=== PATIENT | male | born 1960 | race Caucasian/White ===

== ENCOUNTER → 2020-02-09 | Outpatient (CLI) | payer BC | LOC: LAB 07:25 | PROVIDERS: ATTEND Family Medicine | DX: Z20.828 Contact with and (suspected) exposure to other viral communicable diseases (principal) ==

== ENCOUNTER 2020-04-25 09:11 | Inpatient (IN) | payer BC ==
[~2020-04-25] VITALS: Ht 177.8 cm; Wt 78.9 kg
[2020-04-25 09:22] VITALS: BP 104/62
[2020-04-25] MEDS ORDERED: NAPROXEN SODIU220 M2 PO (10:19)
[2020-04-25 10:28] LABS: HEMOGLOBIN 9.3 gm/dL (14.0-18.0); MCH 24.9 pg (26.0-34.0); PLATELET COUNT 706 thou/uL (150-400); RBC 3.73 mil/uL (4.50-6.00); RDW 17.4 % (10.5-14.5); WBC 39.4 thou/uL (4.0-11.0)
[2020-04-25 10:49] LABS: ANION GAP 29 mmol/L (7-16); BUN 85 mg/dL (7-18); CALCIUM 9.5 mg/dL (8.5-10.1); CHLORIDE 99 mmol/L (98-107); CREATININE 4.9 mg/dL (0.7-1.3); GLUCOSE 117 mg/dL (74-106); LIPASE 62 U/L (73-393); POTASSIUM 3.9 mmol/L (3.5-5.1); SGOT 67 U/L (15-37); SGPT 38 U/L (30-65); SODIUM 139 mmol/L (136-145); TOTAL BILIRUBIN 3.2 mg/dL (0.2-1.0); TROPONIN-I <0.06 ng/mL (<0.06)
[2020-04-25 11:00] LABS: CO2 11 mmol/L (21-32)
--- NOTE | 2020-04-25 11:26 | EKG ---
[address] [address] ELECTROCARDIOGRAM REPORT Name: BETINA TORRES [id number] Admission: 04/25/20 Attend Phys: Discharge: Date of : 56 Report #: [id number] [facility] ED Test Date: 2020-04-25 Test Time: 10:01:25 Pat Name: BETINA TORRES Department: Room: Gender: M Jig Fitter: taniya : 1960 Requested By: Ludwig Dykes Order Number: [id number] MD: Torey Everett Measurements Intervals [place] Rate: 98 P: 53 CA: 197 QRS: 7 QRSD: 116 T: 36 QT: 395 QTc: 505 Interpretive Statements Sinus tachycardia Atrial premature complexes Nonspecific intraventricular conduction delay No previous ECG available for comparison Electronically Signed On 04-25-2020 11:26:06 SUPERSONIC ENGINEER by Torey Everett [email or web address] <ELECTRONICALLY SIGNED> By: Torey Everett MD, [facility] 04/25/20 1126 1001 1001 Torey Everett MD, FACC /EPI
[2020-04-25 12:29] LABS: CHOLESTEROL 137 mg/dL (<200); HDL CHOLESTEROL 7 mg/dL (>40); LDL CHOLESTEROL 88 mg/dL (<100); TC:HDL 19.6 Ratio (Not establshd); TRIGLYCERIDE 211 mg/dL (<150); VLDL 42 mg/dL (<40)
[2020-04-25 12:36] LABS: ABSOLUTE NEUTROPHILS 38.2 thou/uL (1.4-8.2); ANISOCYTOSIS 1+; METAMYELOCYTES 1 %; POIKILOCYTOSIS SLIGHT; TARGET CELLS OCCASIONAL; TOXIC GRANULATION SLIGHT
[2020-04-25 12:37] LABS: PLATELET ESTIMATE INCREASED
[2020-04-25 12:46] VITALS: BP 118/67
[2020-04-25 13:48] VITALS: BP 91/70
[2020-04-25 14:02] VITALS: BP 98/65
--- NOTE | 2020-04-25 15:42 | NUR ---
59-year-old male who presents for evaluation of both shortness of breath and generalized abdominal pain. He states that he has a history of lupus but denies any other significant medical problems. He reports that he has been having shortness of breath on and off for the last few months but that it became worse. Patient being admitted by hospitalist Dr. Reeves for Severe Dehydration, colonic mass/liver mets (?), type 2 2 lactic acidosis, GILBERT, and a history of lupus. Patient has a negative COVID Antigen test and PCR is pending. Patients spouse is listed as next of kin and person to notify, Funmilayo Lo with phone number [phone] as well as documented as the patient being A&O x4. As plan of care is determined, CM will follow for discharge needs.
[2020-04-25 15:46] VITALS: BP 100/70
[2020-04-25 17:25] LABS: URINE BILIRUBIN 1+ (Negative); URINE BLOOD 1+ (Negative); URINE CLARITY SL CLOUDY; URINE COLOR YELLOW; URINE GLUCOSE-RANDOM* TRACE (Negative); URINE KETONES NEGATIVE (Negative); URINE LEUKOCYTES 1+ (Negative); URINE NITRITE NEGATIVE (Negative); URINE PROTEIN (DIPSTICK) 2+ (Negative); URINE SPECIFIC GRAVITY 1.025 (1.005-1.035)
[2020-04-25 17:31] LABS: ICTOTEST (BILI CONFIRMATORY) Negative (Negative)
[2020-04-25 17:35] LABS: BACTERIA 1-9 Few /HPF (None Seen); CASTS None Seen /LPF (None Seen); CRYSTALS None Seen /LPF (None Seen); PROT/CREAT RATIO 1.6; SQUAMOUS 0-3 Few /LPF (0-3); URINE CREATININE-RANDOM* 152.2 mg/dL; URINE PROTEIN-RANDOM* 236.6 mg/dL (<11.9); URINE RBC 0-2 Rare /HPF (0-2); URINE WBC 6-15 Few /HPF (0-5)
--- NOTE | 2020-04-25 17:41 | NUR ---
PATIENT ADMIT TO UNIT FROM ER AT 1430. A/O X4. GENERLIAZED WEAKNESS. ON RA, AFEBRILE. VSS. 2/10 LOWER BACK PAIN. NO N/V. STAND BY AMBULATED TO BATHROOM. WILL KEEP MONITOR.
[2020-04-25 22:33] VITALS: BP 111/69
[2020-04-25 23:07] LABS: COMPLEMENT-C3 161 mg/dL (82-167); COMPLEMENT-C4 13 mg/dL (12-38)
--- NOTE | 2020-04-26 04:45 | NUR ---
blood cultures came back tonight gram negative cocci. recieved order to start antibiotics tonight. started vanco and piperacillin tonight. pt prefers to ambulate with assist to br for urine output. covid positve results reported from lab this shift from the 04/25/20 sample.
[2020-04-26 05:27] VITALS: BP 109/62
[2020-04-26 05:58] LABS: HEMATOCRIT 25.5 % (42.0-52.0); HEMOGLOBIN 8.2 gm/dL (14.0-18.0)
[2020-04-26 06:00] LABS: MCH 25.8 pg (26.0-34.0); MCHC 32.3 g/dL (28.0-37.0); MCV 79.9 fL (80.0-100.0); RBC 3.19 mil/uL (4.50-6.00)
[2020-04-26 06:02] LABS: PLATELET COUNT 483 thou/uL (150-400); WBC 9.7 thou/uL (4.0-11.0)
[2020-04-26 06:12] LABS: ALBUMIN 1.6 g/dL (3.4-5.0); CALCIUM 8.1 mg/dL (8.5-10.1); CREATININE 4.1 mg/dL (0.7-1.3); PHOSPHORUS 6.3 mg/dL (2.6-4.7); POTASSIUM 4.4 mmol/L (3.5-5.1)
--- NOTE | 2020-04-26 07:24 | NUR ---
ambika tyler this am 04/26/20 approx 0715. notified that the patients procalcitonin is greater than 200
[2020-04-26 07:42] VITALS: BP 114/92
[2020-04-26 11:21] VITALS: BP 88/59
[2020-04-26 12:48] LABS: ABSOLUTE NEUTROPHILS 8.7 thou/uL (1.4-8.2); ANISOCYTOSIS 1+; NUCLEATED RBCS 1 /100WBC
[2020-04-26 15:31] VITALS: BP 107/72
--- NOTE | 2020-04-26 16:01 | NUR ---
INITIAL ASSESSMENT: SW reviewed chart and spoke with nursing and attending physician. Pt was admitted from home due to dehydration. Pt placed in Enhanced Isolation due to COVID-19. Pt is afebrile and not requiring O2. Pt is on IV abx and IV steroids. IR consulted for liver biopsy. Pt with colon masses with possible liver mets. SW placed call to pt's room. No answer. Per chart, pt is alert/orientated. Pt lives at home with his . SW will follow up with pt at a later time and assist as needed with discharge planning.
--- NOTE | 2020-04-26 19:13 | NUR ---
PATIENT ADMIT TO UNIT AT 1745. A/0 X2. ON 2L/NC. NOTED BLOOD TINGED LIQID STOOL FROM RIGHT OSTOMY. IN TEAM PUT RIGHT IJ. WILL KEEP MONITOR.
[2020-04-26 20:13] VITALS: BP 118/71
--- NOTE | 2020-04-26 23:49 | NUR ---
PT RESTING IN ROOM WATCHING TV. IVF INTACT. PT STEADY GAIT WHEN AMBULATING TO RESTROOM. PT REPORTING LOOSE STOOLS. LUNGS DIMINISHED, HR DISTANT, BS DECREASED. ABD DISTENDED. DUSKY SKIN TONE. ID DR SEWELL.
[2020-04-27] VITALS (9 sets, daily range): BP systolic 102–130; BP diastolic 62–82
[2020-04-27 05:32] LABS: HEMATOCRIT 21.4 % (42.0-52.0)
[2020-04-27 05:34] LABS: HEMOGLOBIN 6.8 gm/dL (14.0-18.0); MCHC 31.9 g/dL (28.0-37.0); MCV 78.3 fL (80.0-100.0); RBC 2.74 mil/uL (4.50-6.00); RDW 16.9 % (10.5-14.5)
[2020-04-27 05:41] LABS: PLATELET COUNT 350 thou/uL (150-400); WBC 27.6 thou/uL (4.0-11.0)
[2020-04-27 06:20] LABS: ALBUMIN 1.3 g/dL (3.4-5.0); CALCIUM 7.6 mg/dL (8.5-10.1); CREATININE 4.1 mg/dL (0.7-1.3); MAGNESIUM 2.2 mg/dL (1.8-2.4); TOTAL BILIRUBIN 1.7 mg/dL (0.2-1.0); TOTAL PROTEIN 6.6 g/dL (6.4-8.2)
[2020-04-27 06:21] LABS: POTASSIUM 3.3 mmol/L (3.5-5.1)
[2020-04-27 10:04] LABS: ABSOLUTE NEUTROPHILS 25.7 thou/uL (1.4-8.2)
[2020-04-27 10:06] LABS: ANISOCYTOSIS 1+
--- NOTE | 2020-04-27 13:10 | NUR ---
SIMONE reviewed chart and spoke with nursing and attending physician. Pt remains in Enhanced Isolation due to COVID-19. Pt is afebrile and not requiring O2. Pt is on IV steroids and IV abx. Pt is completing course of Remdesivir. Pt to have blood transfusion today. Liver biopsy ordered but was unable to be completed today. SIMONE placed call to pt's room. No answer. SIMONE spoke with pt's , Funmilayo, via phone. Introduced role of SW. Pt is normally alert/orientated x 4. Pt and live at home. Prior to admission, pt was independent with ADLs. No use of DME. No hx of HH services or post-acute placement. Pt's PCP is Dr. Herrera. No weekend discharge planned. Contact info for [facility] provided to pt's . SIMONE is following to assist as needed with discharge planning.
--- NOTE | 2020-04-27 17:56 | NUR ---
ASSUMED PATIENT CARE AT 0700. A/O X4. RECEIED ONE UNIT RBC NO REACTION NOTED. NOT ABLE TO HAVE LIVER BIOPSY DEU TO INR 1.9. WILL RECHECK ON THURSDAY. UP AD LUTHER IN ROOM. DENIES PAIN. SOLWLY TOWARDS POC GOALS.
--- NOTE | 2020-04-28 01:12 | NUR ---
PT WATCHING TV IN BED. IVF INTACT. STEADY GAIT WITH AMBULATION TO RESTROOM. LUNGS DIMINISHED, ABD DISTENDED. PT DISCUSSED HOW SWALLOW STUDY AND LIVER BIOPSY WERE RESCHEDUELD TO THURSDAY. PT DISCUSSED HOW HE IS LOOKING FORWARD TO UNINTERUPTED SLEEP.
[2020-04-28 04:42] VITALS: BP 136/85
[2020-04-28 05:37] LABS: HEMATOCRIT 25.1 % (42.0-52.0); HEMOGLOBIN 8.1 gm/dL (14.0-18.0); MCH 25.8 pg (26.0-34.0); MCHC 32.4 g/dL (28.0-37.0); MCV 79.6 fL (80.0-100.0); RBC 3.16 mil/uL (4.50-6.00); RDW 17.6 % (10.5-14.5); WBC 15.6 thou/uL (4.0-11.0)
[2020-04-28 06:01] LABS: ALBUMIN 1.3 g/dL (3.4-5.0); CALCIUM 7.8 mg/dL (8.5-10.1); POTASSIUM 3.6 mmol/L (3.5-5.1); TOTAL BILIRUBIN 0.9 mg/dL (0.2-1.0); TOTAL PROTEIN 6.5 g/dL (6.4-8.2)
[2020-04-28 06:02] LABS: CREATININE 3.1 mg/dL (0.7-1.3)
[2020-04-28 08:48] VITALS: BP 144/93
[2020-04-28 11:35] VITALS: BP 134/86
[2020-04-28 15:35] VITALS: BP 138/91
--- NOTE | 2020-04-28 16:16 | HC ---
[facility] [place] [address] CONSULTATION Name: BETINA TORRES Room #: 364-P ADM IN M.R.#: [id number] Admission: 04/25/20 Attend Phys: Adiel Reeves Discharge: Date of : 56 Report #: [id number] THIS REPORT FOR: cc: Ludwig Herrera James A. DO Geha, Daniel J. MD ~ DATE OF SERVICE: 04/26/2020 INFECTIOUS DISEASE CONSULTATION REASON FOR CONSULTATION: I was asked to evaluate concerning COVID-19 and E. coli bacteremia. HISTORY OF PRESENT ILLNESS: The patient is a 59-year-old with a longstanding history of lupus that he treats with nonsteroidal anti-inflammatories. Further details regarding this diagnosis are not available. The patient has had a 3-month history of recurring chills, fever, weight loss, general fatigue. He worsened over the last several days with more shortness of breath associated with nausea and vomiting. Initially had some constipation and now has diarrhea. He has been using nonsteroidal anti-inflammatories. He has tried to maintain hydration, but he thinks he has been lacking. He presents now with acute kidney failure with creatinine up to 4.9. He has had intermittent abdominal pain, mostly in the epigastric region. He has gastroesophageal reflux. No gross hematuria, melena or hematochezia. No back or flank pain. He feels that he has lost weight over the last 3 months. During his initial evaluation, he was COVID positive. He has no known exposure. He is a smoker of cigarettes with no alcohol use. No previous pneumonia. He has had generalized weakness. He actually comes in to the Emergency Room in a wheelchair. 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 He goes up ladders and on roofs on a daily basis. He travels throughout the [place]. No foreign travel. REVIEW OF SYSTEMS: A 14-point review of system was negative other than what has been described above. PAST MEDICAL HISTORY: Lupus, gastroesophageal reflux. FAMILY HISTORY: Colon cancer. SOCIAL HISTORY: Lives with his . No significant alcohol or tobacco use. ALLERGIES: None known. MEDICATIONS: As noted on his JUN, now on vancomycin and Zosyn. [address] [address] CONSULTATION Name: BETINA TORRES Room #: 364-P [facility] IN M.R.#: [id number] Admission: 04/25/20 Attend Phys: Adiel Reeves Discharge: Date of : 56 Report #: [id number] PHYSICAL EXAMINATION: VITAL SIGNS: He is afebrile and hemodynamically stable. GENERAL: He is alert and cooperative. Generalized weakness noted in his lower extremities. SKIN: Without rash or decubitus. No palpable adenopathy. EYES: Without scleral icterus. MOUTH: Without mucositis. NECK: Supple. LUNGS: Clear. HEART: Regular, without murmur, gallop or rub. ABDOMEN: Mildly distended, was tender in the epigastric to right upper quadrant region with no hepatosplenomegaly or mass appreciated. No CVA tenderness. GENITORECTAL: Not performed. EXTREMITIES: Without clubbing, cyanosis or edema. NEUROLOGIC: Cranial nerves intact. Strength in the upper and lower extremities was symmetric and within normal limits. Sensation to fine touch within normal limits. LABORATORY STUDIES: Reviewed. MICROBIOLOGY: Reviewed. IMAGING: Chest x-ray and CT scan of abdomen and pelvis reviewed. IMPRESSION: 1. A 59-year-old with sepsis due to Escherichia coli bacteremia, suspecting biliary tract source and likely metastatic cancer involving the liver. 2. COVID-19 infection without evidence of pneumonia at this point. 3. Elevated liver function test, suspect related to metastatic liver disease. 4. Acute kidney injury with creatinine up to 4.9 secondary to dehydration and nonsteroidal anti-inflammatories. Component of lupus also considered. 5. Anemia. 6. Gastroesophageal reflux. RECOMMENDATIONS: 1. Continue with gram-negative coverage, adjusted for his renal failure. Treat COVID-19 with multivitamins and ivermectin. The patient does not qualify for remdesivir or convalescent plasma. As an inpatient, does not qualify for monoclonal antibody. 2. We would still have some anticoagulation for patient may be hypercoagulable [address] [address] CONSULTATION Name: BETINA TORRES Room #: 364-P [facility] IN M.R.#: [id number] Admission: 04/25/20 Attend Phys: Adiel Reeves Discharge: Date of : 56 Report #: [id number] due to suspected cancer and COVID. We will await liver biopsy and proceed from there. Serial liver tests as well as creatinine and CBC. <ELECTRONICALLY SIGNED> By: Cas Mason MD 04/28/20 1616 [id number] Cas Mason MD /nt
--- NOTE | 2020-04-28 18:28 | NUR ---
NO CHANGE. SOLWLY TOWARDS POC GOALS.
[2020-04-28 20:03] VITALS: BP 124/86
[2020-04-29 04:43] VITALS: BP 144/98
[2020-04-29 05:29] LABS: HEMATOCRIT 29.5 % (42.0-52.0); HEMOGLOBIN 9.5 gm/dL (14.0-18.0); MCH 25.8 pg (26.0-34.0); MCHC 32.3 g/dL (28.0-37.0); RBC 3.69 mil/uL (4.50-6.00); RDW 17.8 % (10.5-14.5); WBC 18.8 thou/uL (4.0-11.0)
[2020-04-29 05:42] LABS: APTT 25.9 Seconds (24.5-32.8); INR 1.2; PROTIME 12.7 Seconds (9.3-11.4)
--- NOTE | 2020-04-29 05:42 | NUR ---
PT AMBULATING TO BATHROOM INDEPENDENTLY AND IS TOLERATING WELL. DENIES NEED FOR PAIN MEDICATION. RESTING COMFORTABLY. NO NEEDS VOICED. CALL LIGHT WITHIN REACH. FREQUENT OBSERVATION.
[2020-04-29 05:53] LABS: ALBUMIN 1.5 g/dL (3.4-5.0); CALCIUM 8.1 mg/dL (8.5-10.1); CREATININE 2.4 mg/dL (0.7-1.3); PHOSPHORUS 5.6 mg/dL (2.6-4.7); POTASSIUM 3.9 mmol/L (3.5-5.1); TOTAL BILIRUBIN 0.9 mg/dL (0.2-1.0); TOTAL PROTEIN 6.8 g/dL (6.4-8.2)
[2020-04-29 08:15] VITALS: BP 135/88
[2020-04-29 11:18] VITALS: BP 129/89
[2020-04-29 16:01] VITALS: BP 140/94
--- NOTE | 2020-04-29 17:43 | NUR ---
no change. will have liver biopsy tomorrow.
[2020-04-29 20:11] VITALS: BP 141/92
[2020-04-30] VITALS (7 sets, daily range): BP systolic 133–160; BP diastolic 75–93
--- NOTE | 2020-04-30 02:53 | NUR ---
PT AMBULATING TO BATHROOM INDEPENDENTLY AND IS TOLERATING WELL. DENIES NEED FOR PAIN MEDICATION. RESTING COMFORTABLY. NO NEEDS VOICED. CALL LIGHT WITHIN REACH. FREQUENT OBSERVATION.
[2020-04-30 05:34] LABS: ALBUMIN 1.7 g/dL (3.4-5.0); CALCIUM 8.1 mg/dL (8.5-10.1); CREATININE 2.2 mg/dL (0.7-1.3); PHOSPHORUS 4.7 mg/dL (2.5-4.9); POTASSIUM 4.5 mmol/L (3.5-5.1)
--- NOTE | 2020-04-30 16:10 | NUR ---
SW reviewed chart and spoke with nursing and attending physician. Pt remains in Enhanced Isolation due to COVID-19. Pt is afebrile and not requiring O2. Pt is on IV abx and IV steroids. Pt to have liver biopsy today. Plan is for pt to discharge home when medically stable. SIMONE is following to assist as needed with discharge planning.
[2020-05-01 02:04] VITALS: BP 150/78
[2020-05-01 04:12] VITALS: BP 150/97
[2020-05-01 05:31] LABS: HEMATOCRIT 31.1 % (42.0-52.0); MCH 26.1 pg (26.0-34.0); MCV 81.7 fL (80.0-100.0); RBC 3.81 mil/uL (4.50-6.00); RDW 18.1 % (10.5-14.5)
--- NOTE | 2020-05-01 05:36 | NUR ---
ASSUMED CARE OF PT AT 1900.PT IS A/O 4 AND IS UP AD LUTHER. RA. VSS. NPO SINCE MIDNIGHT AWAITING PROCEDURE. CALL LIGHT IS WITHIN REACH.
[2020-05-01 05:55] LABS: ALBUMIN 1.6 g/dL (3.4-5.0); CALCIUM 7.9 mg/dL (8.5-10.1); CREATININE 1.8 mg/dL (0.7-1.3); MAGNESIUM 1.8 mg/dL (1.8-2.4); PHOSPHORUS 4.8 mg/dL (2.5-4.9); POTASSIUM 4.4 mmol/L (3.5-5.1); TOTAL BILIRUBIN 0.9 mg/dL (0.2-1.0); TOTAL PROTEIN 6.3 g/dL (6.4-8.2)
[2020-05-01 08:08] LABS: ANTI-DNA SCREEN 2 IU/mL (0-9)
[2020-05-01 08:51] VITALS: BP 154/72
--- NOTE | 2020-05-01 15:13 | NUR ---
SW reviewed chart and spoke with nursing and attending physician. Pt remains in Enhanced Isolation due to COVID-19. Pt is afebrile and not requiring O2. Pt is on IV abx and IV steroids. Pt had liver biopsy yesterday and will have barium swallow study today. Pt to have EGD/colonoscopy as an outpatient per GI. Plan is for pt to discharge home when medically stable. SIMONE is following to assist as needed with discharge planning.
[2020-05-01 17:10] LABS: ANA INTERPRETATION Negative (())
--- NOTE | 2020-05-01 19:33 | NUR ---
PT GIVEN A MECH SOFT DIET AFTER BARIUM SWALLOW THIS ALESSIA. HE ATE 100% BUT STATES HE HAS LOOSE STOOLS SEVERAL TIMES DURING MEAL. STATED THIS HAS HAPPEN FOR A FEW WEEKS. ALSO STATED THIS IS FIRST SOLID FOOD SINCE TIFFANI MEAL.
[2020-05-01 19:48] VITALS: BP 131/96
--- NOTE | 2020-05-02 03:47 | NUR ---
CONTINUES ON ROOM AIR. STATED THAT HE FELT MUCH BETTER AFTER EATING SOME DINNER LAST NIGHT. HE REFUSED TO TAKE THE VITAMIN C TABLETS. STATED THAT THEY ARE TOO BIG/DRY. USING URINAL, UP TO BR AT TIMES. RESTING QUIETLY TONIGHT.
[2020-05-02 04:10] VITALS: BP 167/84
[2020-05-02 08:05] VITALS: BP 151/85
--- NOTE | 2020-05-02 08:44 | NUR ---
PT REFUSED VITAMIN C TABS. STATES 'DO YOU WANT ME TO CHOKE?, THEY ARE TOO BIG FOR ME TO SWALLOW.' THIS RN OFFERED TO HALF AND CRUSH, PT REFUSED THEN STATED 'THE CHEMICALS IN THEM HURT MY STOMACH.'
[2020-05-02 11:08] VITALS: BP 131/89
--- NOTE | 2020-05-02 14:18 | NUR ---
SW reviewed chart and spoke with nursing and attending physician. Pt remains in Enhanced Isolation due to COVID-19. Pt is afebrile and not requiring O2. Pt is on IV abx. Pt had barium swallow yesterday. Per attending, pt may be ready for discharge home tomorrow pending clearance from ID and GI. SIMONE is following to assist as needed with discharge planning.
[2020-05-02 16:15] VITALS: BP 140/91
[2020-05-02 19:26] VITALS: BP 135/89
[2020-05-03 03:55] VITALS: BP 145/92
[2020-05-03 06:20] LABS: HEMATOCRIT 33.6 % (42.0-52.0); HEMOGLOBIN 10.4 gm/dL (14.0-18.0); MCH 26.3 pg (26.0-34.0); MCV 84.7 fL (80.0-100.0); RBC 3.97 mil/uL (4.50-6.00); RDW 17.9 % (10.5-14.5); WBC 23.6 thou/uL (4.0-11.0)
[2020-05-03 08:56] VITALS: BP 133/83
--- NOTE | 2020-05-03 11:14 | NUR ---
RECEIVED CONSULT FOR PT WHO WAS EVALUATED AND DEEMED TOO HIGH FUNCTIONALLY FOR ACUTE REHAB NEEDS. THANK YOU FOR THIS REFERRAL.
--- NOTE | 2020-05-03 11:24 | NUR ---
Received consult for home IV abx: ceftriaxone. SW reviewed chart and spoke with nursing and attending physician. Pt's WBC count is elevated today. [facility] consult ordered. Discussed case with [facility] rehabilitation counsellor. Pt is too high level for admission to [facility]. SW spoke with pt via cell phone. Introduced role of SW. Pt is alert/orientated x 4. SW discussed need for home IV abx and HH when discharged. Pt verbalized understanding and is agreeable. Options provided to pt. No preference voiced. Confirmed pt's home address and phone number. Pt's PCP is Dr. Herrera. SW explained referral process for home infusion and need for education prior to discharge. SW faxed referral to [facility] for home IV infusion. Notified [facility] infusion liaison. SIMONE faxed HH referral to [facility] . Discharge home is anticipated in 1-2 days. SIMONE is following to assist as needed with discharge planning.
--- NOTE | 2020-05-03 14:51 | NUR ---
CONSULTED TO PLACE A PICC FOR A PATIENT NEEDING HOME IV ANTIBIOTICS. ORDER AND CONSENT NOTED. THE PROCEDURE WELL BENIFITS AND RISKS WERE DISCUSSED AND HE VERBALIZED UNDERSTANDING. A #4F SINGLE LUMEN POWER PICC WAS PLACED. LINE WAS TRIMMED TO 42CM AND ADVANCED WITHOUT DIFFICULTY. A STAT CHEST XRAY CONFIRMED LINE IN APPROPRIATE POSITION AND RELEASED FOR USE
[2020-05-03 15:20] VITALS: BP 85/77
--- NOTE | 2020-05-03 18:15 | NUR ---
PATIENT HAS ONE EPISODE ABD PAIN. NO N/V. UP AD LUTHER. PROGRESSING TOWARDS POC GOALS.
[2020-05-03 20:40] VITALS: BP 114/55
[2020-05-03 21:08] VITALS: BP 91/56
[2020-05-04 04:01] VITALS: BP 100/71
[2020-05-04 05:58] LABS: HEMATOCRIT 29.4 % (42.0-52.0); HEMOGLOBIN 9.2 gm/dL (14.0-18.0); MCH 26.8 pg (26.0-34.0); MCHC 31.4 g/dL (28.0-37.0); MCV 85.3 fL (80.0-100.0); RBC 3.45 mil/uL (4.50-6.00); RDW 19.1 % (10.5-14.5); WBC 22.9 thou/uL (4.0-11.0)
--- NOTE | 2020-05-04 06:23 | NUR ---
PT MAKING PROGRESS TOWARDS GOALS. PT REPORTING THAT HIS ABDOMEN IS "SORE" AND "5/10". DENIED ANY NEED FOR PAIN MEDICATION OVERNIGHT.
[2020-05-04 08:12] VITALS: BP 100/69
--- NOTE | 2020-05-04 14:59 | NUR ---
NOTE PER LEAD SUSTAINABILITY SPECIALIST: SIMONE spoke with nursing. Pt remains in Enhanced Isolation. Surgery consulted to evaluate pt's gall bladder. Also awaiting pathology report. SIMONE spoke with ID physician regarding home IV abx. Recommendation made for Ceftriazone 2gm daily. SIMONE updated [facility] masonison, who has spoken with pt regarding insurance coverage and education for home infusion. Pt is agreeable with discharge plan. [facility] liaison to be onsite this afternoon to provide teaching. SIMONE notified perennial house manager of [facility]'s visit. [facility] is able to provide RN services to pt. Unsure if pt will be ready for discharge over the weekend. Pending surgery consultation. If pt is ready for discharge, finalized discharge orders will need to be faxed to [facility]. telephone recorder pharmacist will need to be contacted to coordinate delivery of home IV abx/supplies. SIMONE is following and is available to assist as needed with discharge planning. [facility]- [facility]jia
[2020-05-04 15:59] VITALS: BP 102/71
--- NOTE | 2020-05-04 17:06 | PATH ---
[facility] [address] [place] [address] PATHOLOGY RPT PROCEDURE Name: CHRIS TORRES Room #: 364-P ADM IN M.R.#: [id number] Admission: 04/25/20 Date of : 56 Discharge: Report #: [id number] Path Case #: [id number] [facility] Accession Number: [id number] . 01 Material submitted: . liver - LIVER BIOSPY . 02 Diagnosis: Liver, needle core biopsy: - Fragments entirely comprised of fibrinous degenerated exudate as well as marked acute inflammation, compatible with abscess. - Hepatic lobular parenchyma showing scattered foci of acute inflammation within the sinusoidal spaces as well as mild portal chronic inflammation. - Negative for malignancy, see comment. LB 05/04/2020 1406 Local . 02 Comment: Examination shows few detached fragments of fibrous wall, marked acute inflammation as well as fibrinous exudative material, suggestive of sampling of an abscess. The needle core biopsy tissue of the liver shows moderate acute inflammation within the sinusoidal spaces scattered throughout the lobules, as well as the portal tracts. In addition, the portal tracts are expanded by mild chronic inflammation. Bile ductular proliferation, or florid duct lesions, steatohepatitis, glycogenated nuclei, ballooned hepatocytes as well as sclerosing bile duct lesions are not identified. Properly controlled special stains are performed on block A1. Trichrome stain shows mildly expanded portal tracts along with the fibrous wall. Reticulin stain shows single hepatic cords. Iron stain shows scattered rare with and without 1+ granular reactivity within the zone 3 hepatocytes (hepatocytes surrounding the central vein). PAS with and without diastase are negative for intracytoplasmic globules in zone 1. . Properly controlled CD34 immunohistochemical stain is performed on block A1 and it shows no evidence of increased vascularity within the hepatic parenchyma. . Findings are compatible with sampling of an abscess wall and acute inflammation extending into the adjacent hepatic tissue. There is no evidence of malignancy present. The same was conveyed to Dr. Tyshawn Yates on the morning of 05/03/2020. (IUV/db; 05/04/2020) . 02 Electronically signed: . Shreya Wheatley MD, Pathologist NPI- [id number] . 01 Gross description: . [facility] [address] [place] [address] PATHOLOGY RPT PROCEDURE Name: CHRIS TORRES Room #: 364-P ADM IN M.R.#: [id number] Admission: 04/25/20 Date of : 56 Discharge: Report #: [id number] Path Case #: [id number] The specimen is received in formalin, labeled "Chrsi Jimenez, liver". Received are three needle cores of pale forbes soft tissue ranging in length from 0.6 to 0.8 cm in length by 0.1 cm in diameter. The specimen is submitted entirely in cassette A1 through A3. (CAA; 05/02/2020) QAC/QAC 05/02/2020 1328 Local . 02 Pathologist provided ICD-10: K73.9 . 02 CPT . 294578, 794237, 697428, 711124, 871119, 808916, T46375 Specimen Comment: Report sent to Performed at: [address], [place] [id number] MD John Rascon MD Phone: [phone] Performed at: [address] [id number] MD Shreya Wheatley MD Phone: [phone]
--- NOTE | 2020-05-04 17:07 | NUR ---
FAXED CLINICAL UPDATE WITH DR. RAVI ROSAS'S IV ABX INSTRUCTIONS RECEIVED CONFIRMMATION.
--- NOTE | 2020-05-04 18:31 | NUR ---
PROGRESSING TOWARDS POC GOALS.
[2020-05-04 21:09] VITALS: BP 106/69
[2020-05-05 05:05] VITALS: BP 115/76
[2020-05-05 08:34] VITALS: BP 110/70
[2020-05-05] MEDS ORDERED: TRAMADOL 50 MG50 MG PO (10:14)
[2020-05-05] MEDS ORDERED: PEPCID20 MG PO (10:14)
[2020-05-05] MEDS ORDERED: CEFTRIAXON1 GM/50 M1 IVPB (10:31)
[2020-05-05 10:43] VITALS: BP 110/70
--- NOTE | 2020-05-05 13:51 | NUR ---
FAXED DC ORDER TO [facility] AND CALLED OFFICE THAT PATIENT DC'D TO HOME.
--- NOTE | 2020-05-07 07:06 | PATH ---
[facility] [address] [place] [address] PATHOLOGY RPT PROCEDURE Name: BETINA TORRES Room #: 364-P DIS IN M.R.#: [id number] Admission: 04/25/20 Date of : 56 Discharge: 05/05/20 Report #: [id number] Path Case #: [id number] Note [facility] Accession Number: [id number] TESTS RESULT FLAG UNITS REF RANGE LAB Clinician Provided Cytology Information No. of containers..01 Other (Miscellaneous) Source: LIVER DIAGNOSIS: 02 LIVER, FINE NEEDLE ASPIRATION NEGATIVE FOR MALIGNANT EPITHELIAL CELLS. THIS INTERPRETATION INCLUDES EVALUATION OF A CELL BLOCK. ACUTE INFLAMMATION AND FIBRINOUS EXUDATE, COMPATIBLE WITH AN ABSCESS. Pathologist ICD10: 02 K75.0 Signed out by: James Wheatley MD, Pathologist NPI- [id number] Performed by: Nahomy Vora, Sample Dye Mixer ([facility]) Gross description: 01 2ML, RED/WILKINS, 1TP 1CB /LCS 05/03/2020 0715 Local FLAG LEGEND: L-Low Normal,H-High Normal,LL-Alert Low,HH-Alert High <-Panic Low,>-Panic High,A-Abnormal,AA-Critical Abnormal Performed at: [address] [place] [address] John Rascon MD, [address] [address] Shreya Wheatley MD, Specimen Comment: A courtesy copy of this report has been sent to [phone] Specimen Comment: Report sent to Performed at: [address], [place], [place] [id number] MD John Rascon MD Phone: [phone]
--- NOTE | 2020-05-07 16:57 | NUR ---
PT DISCHARGED LATE THURSDAY TO HOME WITH [facility] DC ORDERS/SUMMARY WERE NOT FAXED AT DC SO I FAXED DC ORDERS TODAY SPOKE WITH GIGI IN INTAKE SHE RECEIVED ORDERS AND WILL ARRANGE VISITS WITH PT.
== END 2020-05-05 13:56 | disposition home health service (06) | DRG 871 ==
LOC: ER 09:11 → 3W 12:33 → EROBS 12:33 → 3W 13:42
PROVIDERS: Emergency Medicine; Hospitalist; Internal Medicine Nephrology; Nurse Practitioner; Specialist; ADMIT Hospitalist; ATTEND Hospitalist
PROC: 30233N1 Transfusion of Nonautologous Red Blood Cells into Peripheral Vein, Percutaneous Approach (ICD-10-PCS; principal; 2020-04-27)
PROC: 0FB13ZX Excision of Right Lobe Liver, Percutaneous Approach, Diagnostic (ICD-10-PCS; 2020-04-30)
PROC: 02HV33Z Insertion of Infusion Device into Superior Vena Cava, Percutaneous Approach (ICD-10-PCS; 2020-05-03)
PROC: B548ZZA Ultrasonography of Superior Vena Cava, Guidance (ICD-10-PCS; 2020-05-03)
DX: A41.51 Sepsis due to Escherichia coli [E. coli] (principal); U07.1 COVID-19; J12.82 Pneumonia due to coronavirus disease 2019; K75.0 Abscess of liver; N17.9 Acute kidney failure, unspecified; C22.8 Malignant neoplasm of liver, primary, unspecified as to type; E46 Unspecified protein-calorie malnutrition; D72.89 Other specified disorders of white blood cells; D64.9 Anemia, unspecified; E86.0 Dehydration; F17.210 Nicotine dependence, cigarettes, uncomplicated; K21.9 Gastro-esophageal reflux disease without esophagitis; M32.9 Systemic lupus erythematosus, unspecified; R13.10 Dysphagia, unspecified; K81.9 Cholecystitis, unspecified; Z79.899 Other long term (current) drug therapy; Z68.25 Body mass index [BMI] 25.0-25.9, adult
CPT/HCPCS: 10879; 27000

== ENCOUNTER → 2020-05-16 | Outpatient (CLI) | payer BC ==
[~2020-05-16] MED LIST: CEFTRIAXON1 GM/50 M1 IVPB; INVANZ1 GM IV; NAPROXEN SODIU220 M2 PO; PEPCID20 MG PO; TRAMADOL 50 MG50 MG PO
[2020-05-16 11:55] VITALS: BP 107/63
--- NOTE | 2020-05-16 12:45 | NUR ---
HERE FOR 1ST DOSE ERTAPENEM FOR E COLI SEPSIS. REPORTS HAVING HAD A TERRIBLE ADVERSE/ALLERGIC REACTION TO THE CEFTRIAXONE HE WAS ON AT HOME. STATES TERRIBLE ITCHING AND EXRUCIATING PAIN MOVED THROUGH HIS ENTIRE BODY DURING AN INFUSION AT HOME. THIS ENDED UP LEAVING HIM VERY WEAK AND UNABLE TO WALK FOR A DAY. THIS WAS PRECIPITATED WELL BY PROFOUND WEAKNESS FOLLOWING A FEW WEEKS BEING IN BED/ILL WITH HIS SEPTICEMIA. PT IS NOW WALKING SAFELY WITH A CANE. SAW DR. ROSAS JUST YESTERDAY IN HIS OFFICE. HAS PATENT PICC LINE RIGHT UPPER ARM. PT STATES HOME HEALTH IS COMING TO HIS HOUSE TOMORROW TO CHANGE THE DRESSING AND CHECK ON HIM. ERTAPENEM IS BEING DELIVERED TOMORROW WELL. PT TOLERATED TODAY'S INFUSION WITHOUT INCIDENT, NO S/S REACTION. DISMISSED IN STABLE CONDITION.
== END ==
LOC: CAT 10:39 → OPONC 10:39
PROVIDERS: ATTEND Specialist
DX: K75.0 Abscess of liver (principal); A41.51 Sepsis due to Escherichia coli [E. coli]
CPT/HCPCS: 95000

== ENCOUNTER → 2020-07-03 | Outpatient (CLI) | payer BC ==
[2020-07-03 09:53] LABS: CREATININE 1.4 mg/dL (0.7-1.3)
== END ==
LOC: LAB 08:15
PROVIDERS: ATTEND Specialist
DX: U07.1 COVID-19 (principal); K75.0 Abscess of liver; J84.10 Pulmonary fibrosis, unspecified; K76.89 Other specified diseases of liver; K57.30 Diverticulosis of large intestine without perforation or abscess without bleeding